=== PATIENT | female | born 1990 | race African-American/Black ===

== ENCOUNTER 2018-05-25 07:35 | Inpatient (IN) ==
[2018-05-25] MEDS ORDERED: ceFAZolin 2,000 MG in PREMIX 1 EACH IV ONE (08:14)
[2018-05-25] MEDS ORDERED: CITRIC ACID/SODIUM CITRATE 30 ML UDCUP PO ONE (08:14)
[2018-05-25] MEDS ORDERED: FAMOTIDINE 20 MG/2 ML VIAL IV ONE (08:14)
[2018-05-25] MEDS ORDERED: LACTATED RINGERS 1,000 ML IV SCH ×2 (08:30→23:45)
[2018-05-25 08:32] LABS: Basophils % 0.4 % (0.0-0.8); Eosinophils # 0.2 10*3/uL (0.0-0.87); Eosinophils % 1.9 % (0.00-10.9); Hematocrit 36.4 VOL% (35.7-47.0); Hemoglobin 12.2 GM/DL (12.0-16.0); Immature Granulocytes % 0.4 %; Immature Granulocytes Absolute 0.03 #; Lymphocytes # 2.3 10*3/uL (1.4-4.0); Lymphocytes % 28.4 % (21.3-54.2); Mean Corpuscular HGB Conc 33.5 GM/DL (32-36); Mean Corpuscular Hemoglobin 30 PG (27-34); Mean Corpuscular Volume 90.1 FL (87-102); Mean Platelet Volume 8.7 FL (9.6-12.0); Monocytes # 0.9 10*3/uL (0.11-0.8); Monocytes % 10.6 % (1.7-12.7); Neutrophils # 4.7 10*3/uL (1.4-7.4); Neutrophils % 58.3 % (38.7-73.9); Platelet Count 226 T/CUMM (130-400); Red Blood Count 4.04 MC/CUMM (3.8-5.5); White Blood Count 8.1 T/CUMM (4-12)
[2018-05-25 08:52] LABS: Alanine Aminotransferase 10 U/L (13-56); Albumin 2.9 G/DL (3.4-5.0); Alkaline Phosphatase 145 U/L (45-117); Aspartate Amino Transferase 8 U/L (0-37); Bilirubin,Total < 0.39 MG/DL (0.2-1.0); Calcium 8.4 MG/DL (8.5-10.1); Total Protein 7.2 G/DL (6.4-8.3)
[2018-05-25 08:53] LABS: Blood Urea Nitrogen 8 MG/DL (7-18); Glucose 113 MG/DL (74-106); Osmolality,Calculated 273.7 MOS/KG (273-304); Sodium 138 MMOL/L (136-145)
[2018-05-25] MEDS ORDERED: OXYTOCIN/LR 20 UNIT/1,000 ML BAG IV ONE (10:53)
[2018-05-25 11:51] LABS: HIV Antigen/Antibody Result Nonreactive (Nonreactive)
[2018-05-25 12:04] LABS: Apearance,Urine CLEAR (Clear); Bilirubin,Urine Negative (Negative); Blood, Urine Negative (Negative); Glucose,Urine (UA) Negative (Negative); Ketones,Urine Negative (Negative); Mucus,Urine Occasional /LPF (Occasional); Nitrite,Urine Negative (Negative); Protein,Urine Negative; RBC,Urine 1 /HPF (0-4); Squamous Epithelial Cell,Urine Occasional /HPF (0-10); Urine Color Straw (Yellow); Urine Specific Gravity 1.015 (1.001-1.035); Urine Urobilinogen < 2.0 EU/DL (0.2-1.0); WBC,Urine 1 /HPF (0-6)
[2018-05-25] MEDS ORDERED: KETAMINE 500 MG/10 ML VIAL ONE (12:29)
[2018-05-25] MEDS ORDERED: ONDANSETRON 4 MG/2 ML VIAL ONE (12:29)
[2018-05-25] MEDS ORDERED: MORPHINE 10 MG/10 ML VIAL ONE (12:29)
[2018-05-25] MEDS ORDERED: PROPOFOL 200 MG/20 ML VIAL IV ONE (12:29)
[2018-05-25] MEDS ORDERED: BUPIVACAINE SPINAL 0.75% 2 ML AMP SPINAL ONE (12:30)
[2018-05-25] MEDS ORDERED: diphenhydrAMINE 50 MG/1 ML VIAL IV PRN (12:59)
[2018-05-25] MEDS ORDERED: ONDANSETRON 4 MG/2 ML VIAL IV PRN ×2 (12:59→15:56)
[2018-05-25] MEDS ORDERED: hydrOXYzine HCL 25 MG/1 ML VIAL IM PRN (12:59)
[2018-05-25] MEDS: HYDROmorphone 2 MG/1 ML VIAL IV PRN ×3 (13:21→20:29)
[2018-05-25] MEDS ORDERED: RHO(D) IMMUNE GLOBULIN 300 MCG SYRINGE IM ONE (15:56)
[2018-05-25] MEDS: ceFAZolin 1,000 MG in SYRINGE 1 EACH IV SCH (19:03)
[2018-05-25 20:23] LABS: Basophils % 0.2 % (0.0-0.8); Eosinophils # 0.1 10*3/uL (0.0-0.87); Eosinophils % 0.9 % (0.00-10.9); Hematocrit 32.3 VOL% (35.7-47.0); Hemoglobin 10.7 GM/DL (12.0-16.0); Immature Granulocytes % 0.5 %; Immature Granulocytes Absolute 0.05 #; Lymphocytes # 2.5 10*3/uL (1.4-4.0); Lymphocytes % 24.1 % (21.3-54.2); Mean Corpuscular HGB Conc 33.1 GM/DL (32-36); Mean Corpuscular Hemoglobin 30 PG (27-34); Mean Platelet Volume 8.8 FL (9.6-12.0); Monocytes # 0.8 10*3/uL (0.11-0.8); Monocytes % 7.6 % (1.7-12.7); Neutrophils % 66.7 % (38.7-73.9); Platelet Count 188 T/CUMM (130-400); Red Blood Count 3.55 MC/CUMM (3.8-5.5); Red Cell Distribution Width 13.1 % (9.3-17.3); White Blood Count 10.5 T/CUMM (4-12)
[2018-05-26] MEDS ORDERED: guaiFENesin 200 MG/10 ML UDCUP PO PRN (00:18)
[2018-05-26] MEDS: ceFAZolin 1,000 MG in SYRINGE 1 EACH IV SCH (01:30)
[2018-05-26] MEDS ORDERED: IBUPROFEN 800 MG TABLET ONE (03:08)
[2018-05-26] MEDS ORDERED: IBUPROFEN 800 MG TABLET PO SCH ×2 (04:00→06:00)
[2018-05-26 04:08] LABS: Basophils % 0.2 % (0.0-0.8); Eosinophils # 0.1 10*3/uL (0.0-0.87); Eosinophils % 1.2 % (0.00-10.9); Hematocrit 30.7 VOL% (35.7-47.0); Hemoglobin 10.7 GM/DL (12.0-16.0); Immature Granulocytes % 0.4 %; Immature Granulocytes Absolute 0.03 #; Lymphocytes # 1.7 10*3/uL (1.4-4.0); Lymphocytes % 20.4 % (21.3-54.2); Mean Corpuscular HGB Conc 34.9 GM/DL (32-36); Mean Corpuscular Hemoglobin 31 PG (27-34); Mean Corpuscular Volume 89.5 FL (87-102); Mean Platelet Volume 9.5 FL (9.6-12.0); Monocytes # 0.8 10*3/uL (0.11-0.8); Monocytes % 9.5 % (1.7-12.7); Neutrophils # 5.8 10*3/uL (1.4-7.4); Neutrophils % 68.3 % (38.7-73.9); Platelet Count 200 T/CUMM (130-400); Red Blood Count 3.43 MC/CUMM (3.8-5.5); White Blood Count 8.5 T/CUMM (4-12)
[2018-05-26] MEDS ORDERED: KETOROLAC 30 MG/1 ML VIAL ONE (08:39)
[2018-05-26] MEDS: MULTIVITAMIN (PRENATAL) TABLET PO SCH (08:59)
[2018-05-26] MEDS: DOCUSATE SODIUM 100 MG CAPSULE PO SCH ×2 (08:59→21:16)
[2018-05-26] MEDS: KETOROLAC 30 MG/1 ML VIAL IV SCH ×3 (08:59→21:17)
[2018-05-26] MEDS: SIMETHICONE CHEW 80 MG TABLET PO PRN (08:59)
[2018-05-26] MEDS: MAGNESIUM HYDROXIDE SUSP 30 ML UDCUP PO PRN ×2 (08:59→21:16)
[2018-05-26] MEDS ORDERED: oxyCODONE/ACETAMINOPHEN 5-325 MG TABLET PO PRN (11:58)
[2018-05-26] MEDS: MEPERIDINE 50 MG/1 ML VIAL IV SCH ×2 (19:03→23:04)
[2018-05-26] MEDS: PROMETHAZINE 25 MG/1 ML VIAL IM SCH (19:07)
[2018-05-27] MEDS: PROMETHAZINE 25 MG/1 ML VIAL IM SCH ×2 (01:01→06:28)
[2018-05-27] MEDS: KETOROLAC 30 MG/1 ML VIAL IV SCH (03:05)
[2018-05-27] MEDS: MEPERIDINE 50 MG/1 ML VIAL IV SCH ×2 (03:10→06:31)
[2018-05-27] MEDS: IBUPROFEN 800 MG TABLET PO SCH ×3 (04:29→17:25)
[2018-05-27] MEDS: MULTIVITAMIN (PRENATAL) TABLET PO SCH (09:18)
[2018-05-27] MEDS: DOCUSATE SODIUM 100 MG CAPSULE PO SCH (09:18)
[2018-05-27] MEDS ORDERED: MEPERIDINE 50 MG/1 ML VIAL IV SCH (10:30)
[2018-05-27] MEDS: MAGNESIUM HYDROXIDE SUSP 30 ML UDCUP PO PRN (13:52)
[2018-05-27] MEDS ORDERED: MEPERIDINE 50 MG/1 ML VIAL ONE (15:37)
[2018-05-27] MEDS: SIMETHICONE CHEW 80 MG TABLET PO PRN (19:44)
[2018-05-28] MEDS: DOCUSATE SODIUM 100 MG CAPSULE PO SCH ×2 (00:14→09:03)
[2018-05-28] MEDS: IBUPROFEN 800 MG TABLET PO SCH ×2 (01:52→09:03)
[2018-05-28 08:43] VITALS: BP 124/76
[2018-05-28] MEDS: MAGNESIUM HYDROXIDE SUSP 30 ML UDCUP PO PRN (09:03)
[2018-05-28] MEDS: MULTIVITAMIN (PRENATAL) TABLET PO SCH (09:03)
== END 2018-05-28 16:15 | disposition home or self-care (01) | DRG 540 ==
LOC: N.LDOUT 07:35 → N.LD 07:38 → N.OB 15:45
PROVIDERS: ADMIT Obstetrics & Gynecology; ATTEND Obstetrics & Gynecology